=== PATIENT | female | born 1955 | race Caucasian/White ===

== ENCOUNTER 2022-06-06 17:57 | Emergency (ER) | payer MEDICARE, MEDICAID, SELFPAY ==
[2022-06-06 18:00] VITALS: BP 201/73; PULSE 108; RESP 16; TEMP 36.2; O2SAT 100; BMI 20.6
--- NOTE | 2022-06-06 18:03 | ED.GENADULT ---
HPI - General Adult General Chief complaint: General Medical <Gabby Posada CNP - Last Filed: 06/06/22 18:08> Stated complaint: High blood pressure <Gabby Posada CNP - Last Filed: 06/06/22 18:08> Time Seen by Provider: 06/06/22 23:58 <Gabby Posada CNP - Last Filed: 06/06/22 18:08> Source: patient <Tanvi Rao MD - Last Filed: 06/07/22 01:50> Mode of arrival: ambulatory <Tanvi Rao MD - Last Filed: 06/07/22 01:50> Limitations: no limitations <Tanvi Rao MD - Last Filed: 06/07/22 01:50> History of Present Illness HPI narrative: Patient comes to the emergency room complaining of hypertension. Patient states that she takes valsartan and hydrochlorothiazide. Patient went to her primary care physician, she is supposed to start 2.5 mg of amlodipine. However, the pain having trouble with the pharmacy getting the meds. Today, patient checked her blood pressure, it was over 200 systolic. Patient checked it several times. Patient states that she has no symptoms. Patient denies chest pain, shortness of breath, no headache, no visual changes. Patient states that literally she feels completely normal. <Tanvi Rao MD - Last Filed: 06/07/22 01:50> Related Data Home medications: Previous Rx's Medication Instructions Recorded amlodipine 2.5 mg tablet 2.5 mg PO DAILY #30 tabs 06/07/22 <Gabby Posada CNP - Last Filed: 06/06/22 18:08> Allergies/adverse reactions: Allergies Allergy/AdvReac Type Severity Reaction Status Date / Time No Known Allergies Allergy Verified 06/06/22 18:02 <Gabby Posada CNP - Last Filed: 06/06/22 18:08> Review of Systems Review of Systems: Constitutional : No Weight loss, No Fever, No Chills, No Night Sweats, No Fatigue, No Malaise ENT/Mouth : No Hearing loss, No Ear Pain, No Nasal Congestion, No Sinus Pain, No Hoarseness, No sore throat, No Rhinorrhea, No Swallowing Difficulty Eyes: No Eye Pain, No Swelling, No Redness, No Foreign Body, No Discharge, No Vision Changes Cardiovascular : No Chest Pain, No SOB, No Dyspnea on Exertion, No Orthopnea, No Edema, No Palpitations Respiratory : No Cough, No Sputum, No Wheezing, No Smoke Exposure, No Dyspnea Gastrointestinal : No Nausea, No Vomiting, No Diarrhea, No Constipation, No abdominal Pain, No Hematochezia, No Melena Genitourinary : no irregular bleeding, No Dysuria, No Urinary Frequency, No Hematuria, No Urinary Incontinence, No Urgency, No Flank Pain, No Urinary Flow Changes, No Hesitancy Musculoskeletal : No joint pain, No Myalgias, No Joint Swelling Skin : No Skin Lesions, No rash Neuro : No Weakness, No Numbness, No Paresthesias, No Loss of Consciousness, No Dizziness, No Headache Psych : No Anxiety/Panic, No Depression, No SI/HI/AH/VH, No Social Issues, Heme/Lymph: No Bruising, No Bleeding,No Lymphadenopathy Endocrine : No Polyuria, No Polydipsia, No Temperature Intolerance <Tanvi Rao MD - Last Filed: 06/07/22 01:50> [facility] Past Medical History Medical History: Medical History (Updated 06/07/22 @ 01:49 by Tanvi Rao MD) Hypertension <Gabby Posada CNP - Last Filed: 06/06/22 18:08> Social History Social History: Social History Advance Directives: No Advance Directives Information Provided: No <Gabby Posada CNP - Last Filed: 06/06/22 18:08> Physical Exam ED Vital Signs: Vital Signs - 24 hr 06/06/22 18:00 06/06/22 21:14 06/06/22 23:38 Temperature 97.1 F 98.3 F Pulse Rate 108 H 73 76 Respiratory Rate 16 16 Blood Pressure 201/73 H 206/71 H 196/94 H Pulse Oximetry 100 100 Oxygen Delivery Method Room Air Room Air 06/07/22 01:40 Temperature Pulse Rate Respiratory Rate Blood Pressure 139/60 Pulse Oximetry Oxygen Delivery Method BMI result Body Mass Index 20.6 <Gabby Posada CNP - Last Filed: 06/06/22 18:08> Vital Signs - 24 hr 06/06/22 18:00 06/06/22 21:14 06/06/22 23:38 Temperature 97.1 F 98.3 F Pulse Rate 108 H 73 76 Respiratory Rate 16 16 Blood Pressure 201/73 H 206/71 H 196/94 H Pulse Oximetry 100 100 Oxygen Delivery Method Room Air Room Air 06/07/22 01:40 Temperature Pulse Rate Respiratory Rate Blood Pressure 139/60 Pulse Oximetry Oxygen Delivery Method BMI result Body Mass Index 20.6 <Tanvi Rao MD - Last Filed: 06/07/22 01:50> Const Other: Appearance: Alert. Oriented X3. No acute distress. Eyes: Pupils equal, round and reactive to light. ENT: Pharynx normal. Neck: Normal inspection. Neck supple. No lymph nodes noted. No crepitus CVS: Normal heart rate and rhythm. Pulses normal. Normal S1 and S2 Respiratory: No respiratory distress. Breath sounds normal. No Wheezing. No rales Abdomen: Soft and nontender. No rigidity. No distention. Skin: Skin warm and dry. Normal skin color. Normal skin turgor. Extremities: No lower extremity edema. No Lacerations. No Rash Neuro: Oriented X 3. No motor deficit. No sensory deficit. Moving all extremities. No slurred speech. CN 2 through 12 grossly intact Psych: calm, cooperative, normal affect <Tanvi Rao MD - Last Filed: 06/07/22 01:50> Course Course Course Narrative: This is an RME: Additional HPI, ROS, PE not included below will be deferred to primary provider. Patient is a 66 old female with past medical history of hypertension. Patient was seen by her primary care doctor yesterday, she has been having elevated blood pressure readings, they were attempting to prescribed a new medication, daughter is not aware of which medication this is, there was reportedly difficulty in getting it obtained from the pharmacy. She has spoken with the doctor's office and pharmacy multiple times. This is not been settled. Reports at home blood pressure was 190/98. Her only complaint is that she has been feeling anxious. Denies headache, dizziness, lightheadedness, neck pain, jaw pain, vision changes, chest pain, shortness of breath, numbness or tingling of the extremities. Review of external pharmacy records indicates prescription for amlodipine 2.5 mg tablets sent to [facility] pharmacy, she has already been taking valsartan and hydrochlorothiazide <Gabby Posada CNP - Last Filed: 06/06/22 18:08> Medications Administered Discontinued Medications Generic Name Dose Route Start Last Admin Trade Name Freq PRN Reason Stop Dose Admin Amlodipine Besylate 10 mg 06/07/22 00:01 06/07/22 00:12 Amlodipine Besylate 10 Mg Tablet PO 06/07/22 00:02 10 mg ONCE ONE Administration Protocol <Gabby Diez BREANNA Posada - Last Filed: 06/06/22 18:08> Medications Administered Discontinued Medications Generic Name Dose Route Start Last Admin Trade Name Freq PRN Reason Stop Dose Admin Amlodipine Besylate 10 mg 06/07/22 00:01 06/07/22 00:12 Amlodipine Besylate 10 Mg Tablet PO 06/07/22 00:02 10 mg ONCE ONE Administration Protocol <Tanvi Rao MD - Last Filed: 06/07/22 01:50> Medical Decision Making Medical Decision Making [facility] Narrative: -patient was given 10 mg of amlodipine in the emergency room, blood pressure improved to 139/60. Patient remains asymptomatic. <Tanvi Rao MD - Last Filed: 06/07/22 01:50> Differential Diagnosis Differential Diagnoses: The differential diagnosis associated with the presentation includes (Hypertension) <Tanvi Rao MD - Last Filed: 06/07/22 01:50> Lab Data [facility] Lab Attestation statement: I reviewed the patient's lab results. <Tanvi Rao MD - Last Filed: 06/07/22 01:50> Result Diagrams: 06/06/22 18:41 06/06/22 18:41 <Gabby Posada CNP - Last Filed: 06/06/22 18:08> Labs: Lab Results 06/06/22 06/06/22 06/06/22 Range/Units 18:41 18:41 18:41 WBC 14.4 H (4.8-10.8) X10*3/uL RBC 3.35 L (4.20-5.50) X10*6/uL Hgb 10.5 L (12.0-16.0) g/dl Hct 31.6 L (37.0-47.0) % MCV 94.3 (80.0-98.0) fL MCH 31.3 (27.0-33.0) pg MCHC 33.2 (31.0-35.0) g/dl RDW 12.5 (11.0-16.0) % Plt Count 338 (160-400) X10*3/uL MPV 11.0 (9.4-12.3) fL Immature Gran % (Auto) 0.3 (0.0-0.4) % Neut % (Auto) 67.8 (45-73) % Lymph % (Auto) 24.8 (20-40) % [place] % (Auto) 6.4 (2-11) % Eos % (Auto) 0.5 (0-4) % Baso % (Auto) 0.2 (0-2) % Lymph # (Auto) 3.6 (1.2-4.9) X10*3/uL [place] # (Auto) 0.9 (0.1-1.2) X10*3/uL Eos # (Auto) 0.1 (0.0-0.4) X10*3/uL Baso # (Auto) 0.0 (0.0-0.2) X10*3/uL Abs Immat Gran (auto) 0.05 H (0.00-0.03) X10*3/uL Absolute Neuts (auto) 9.8 H (2.0-8.3) x10*3/uL Absolute Nucleated RBC 0.000 (0.0-0.012) X10*3/uL Nucleated RBC % (auto) 0.0 (0.0-0.2) /100WBC Sodium 136 (135-145) mmol/L Potassium 3.9 (3.3-5.1) mmol/L Chloride 97 (96-108) mmol/L Carbon Dioxide 27 (22-29) mmol/L Anion Gap 16 (12-20) BUN 24 H (9-16) mg/dL Creatinine 1.06 (0.5-1.4) mg/dL Estim Creat Clear Calc 36.6 Estimated GFR 52 Random Glucose 132 H (60-115) mg/dL Calcium 9.7 (8.4-10.2) mg/dL Total Bilirubin 0.3 (0.0-1.0) mg/dL AST 20 (5-31) U/L ALT 15 (0-31) U/L Alkaline Phosphatase 77 (39-117) U/L Troponin I High Sens < 3.5 (<3.5-17.0) ng/L Total Protein 7.5 (6.5-8.0) g/dL Albumin 4.3 (3.5-5.0) g/dL <Gabby Diez Albino, [employer] - Last Filed: 06/06/22 18:08> Lab Results 06/06/22 06/06/22 06/06/22 Range/Units 18:41 18:41 18:41 WBC 14.4 H (4.8-10.8) X10*3/uL RBC 3.35 L (4.20-5.50) X10*6/uL Hgb 10.5 L (12.0-16.0) g/dl Hct 31.6 L (37.0-47.0) % MCV 94.3 (80.0-98.0) fL MCH 31.3 (27.0-33.0) pg MCHC 33.2 (31.0-35.0) g/dl RDW 12.5 (11.0-16.0) % Plt Count 338 (160-400) X10*3/uL MPV 11.0 (9.4-12.3) fL Immature Gran % (Auto) 0.3 (0.0-0.4) % Neut % (Auto) 67.8 (45-73) % Lymph % (Auto) 24.8 (20-40) % [place] % (Auto) 6.4 (2-11) % Eos % (Auto) 0.5 (0-4) % Baso % (Auto) 0.2 (0-2) % Lymph # (Auto) 3.6 (1.2-4.9) X10*3/uL [place] # (Auto) 0.9 (0.1-1.2) X10*3/uL Eos # (Auto) 0.1 (0.0-0.4) X10*3/uL Baso # (Auto) 0.0 (0.0-0.2) X10*3/uL Abs Immat Gran (auto) 0.05 H (0.00-0.03) X10*3/uL Absolute Neuts (auto) 9.8 H (2.0-8.3) x10*3/uL Absolute Nucleated RBC 0.000 (0.0-0.012) X10*3/uL Nucleated RBC % (auto) 0.0 (0.0-0.2) /100WBC Sodium 136 (135-145) mmol/L Potassium 3.9 (3.3-5.1) mmol/L Chloride 97 (96-108) mmol/L Carbon Dioxide 27 (22-29) mmol/L Anion Gap 16 (12-20) BUN 24 H (9-16) mg/dL Creatinine 1.06 (0.5-1.4) mg/dL Estim Creat Clear Calc 36.6 Estimated GFR 52 Random Glucose 132 H (60-115) mg/dL Calcium 9.7 (8.4-10.2) mg/dL Total Bilirubin 0.3 (0.0-1.0) mg/dL AST 20 (5-31) U/L ALT 15 (0-31) U/L Alkaline Phosphatase 77 (39-117) U/L Troponin I High Sens < 3.5 (<3.5-17.0) ng/L Total Protein 7.5 (6.5-8.0) g/dL Albumin 4.3 (3.5-5.0) g/dL <Tanvi Rao MD - Last Filed: 06/07/22 01:50> Discharge Plan Discharge Clinical Impression: Hypertension <Gabby Posada CNP - Last Filed: 06/06/22 18:08> Patient Disposition: Home, Self-Care <Gabby Posada CNP - Last Filed: 06/06/22 18:08> Instructions: Hypertension (ED) <Gabby Posada CNP - Last Filed: 06/06/22 18:08> Additional Instructions: Please follow-up with your primary care physician tomorrow. If you have any worsening or new symptoms, please return to the emergency room or call 911 <Gabby Posada CNP - Last Filed: 06/06/22 18:08> Prescriptions: New amlodipine 2.5 mg tablet 2.5 mg PO DAILY Qty: 30 0RF <Gabby Posada CNP - Last Filed: 06/06/22 18:08>
--- NOTE | 2022-06-06 18:06 | ECG_ITS ---
Test Reason : HPERTENSION Blood Pressure : / mmHG Vent. Rate : 087 BPM Atrial Rate : 087 BPM P-R Int : 126 ms QRS Dur : 080 ms QT Int : 338 ms P-R-T Axes : 072 043 028 degrees QTc Int : 406 ms Normal sinus rhythm Nonspecific ST abnormality Abnormal ECG No previous ECGs available Referred By: Gabby Posada Electronically Signed By:MIGUEL PAZ MD
[2022-06-06 18:46] LABS: MANUAL DIFF FLAG NO
[2022-06-06 18:49] LABS: Basophils Percent Auto 0.2 % (0-2); Eosinophils Absolute Auto 0.1 X10*3/uL (0.0-0.4); Eosinophils Percent Auto 0.5 % (0-4); Hematocrit 31.6 % (37.0-47.0); Hemoglobin 10.5 g/dl (12.0-16.0); Imm Gran Abs Auto 0.05 X10*3/uL (0.00-0.03); Imm Gran Pct Auto 0.3 % (0.0-0.4); Lymphocytes Absolute Auto 3.6 X10*3/uL (1.2-4.9); Lymphocytes Percent Auto 24.8 % (20-40); Mean Corpuscular HGB Conc 33.2 g/dl (31.0-35.0); Mean Corpuscular Hemoglobin 31.3 pg (27.0-33.0); Mean Corpuscular Volume 94.3 fL (80.0-98.0); Monocytes Absolute Auto 0.9 X10*3/uL (0.1-1.2); Monocytes Percent Auto 6.4 % (2-11); Neutrophils Absolute Auto 9.8 x10*3/uL (2.0-8.3); Neutrophils Percent Auto 67.8 % (45-73); Platelet Count 338 X10*3/uL (160-400); Red Blood Count 3.35 X10*6/uL (4.20-5.50); Red Cell Distribution Width 12.5 % (11.0-16.0); White Blood Count 14.4 X10*3/uL (4.8-10.8)
[2022-06-06 19:08] LABS: Alanine Aminotransferase 15 U/L (0-31); Albumin Level 4.3 g/dL (3.5-5.0); Alkaline Phosphatase 77 U/L (39-117); Anion Gap 16 (12-20); Aspartate Amino Transferase 20 U/L (5-31); Bilirubin Total 0.3 mg/dL (0.0-1.0); Blood Urea Nitrogen 24 mg/dL (9-16); Calcium 9.7 mg/dL (8.4-10.2); Carbon Dioxide 27 mmol/L (22-29); Chloride 97 mmol/L (96-108); Creatinine Clr Calc Pharmacy 36.6; Estimated Glomerular Filt Rate 52; Glucose Random 132 mg/dL (60-115); Potassium 3.9 mmol/L (3.3-5.1); Sodium 136 mmol/L (135-145); Total Protein 7.5 g/dL (6.5-8.0)
[2022-06-06 19:13] LABS: Troponin-I High Sensitivity < 3.5 ng/L (<3.5-17.0)
[2022-06-06 21:14] VITALS: BP 206/71; PULSE 73; RESP 16; TEMP 36.8; O2SAT 100
[2022-06-06 23:38] VITALS: BP 196/94; PULSE 76
[2022-06-07] MEDS: amLODIPine Besylate 10 MG TABLET PO (00:12)
[2022-06-07 01:40] VITALS: BP 139/60
== END 2022-06-07 02:02 | disposition home or self-care (01) ==
PROVIDERS: Nurse Practitioner Family; Emergency Provider Emergency Medicine; PCP Family Medicine
DX: I16.0 Hypertensive urgency (principal); Z79.899 Other long term (current) drug therapy
CPT/HCPCS: 36415; 80053; 84484; 85025; 93005; 99283; 99285